=== PATIENT | female | born 1950 | race Caucasian/White ===

== ENCOUNTER 2016-09-19 12:07 | Emergency (ER) | payer OTHER ==
[~2016-09-19] VITALS: Ht 170.2 cm; Wt 101.6 kg
[2016-09-19 13:41] LABS: ABSOLUTE NEUTROPHILS 10.9 thou/uL (1.4-8.2); BASOPHILS 0.7 % (0.0-2.0); EOSINOPHILS 0.2 % (0.0-3.0); HEMATOCRIT 25.5 % (37.0-47.0); HEMOGLOBIN 8.5 gm/dL (12.0-15.0); LYMPHOCYTES 6.4 % (24.0-44.0); MCH 27.8 pg (26.0-34.0); MCHC 33.1 g/dL (28.0-37.0); MONOCYTES 6.5 % (1.0-8.0); PLATELET COUNT 264 thou/uL (150-400); POLYS 86.2 % (36.0-66.0); RBC 3.04 mil/uL (4.20-5.00); RDW 16.9 % (10.5-14.5); WBC 12.7 thou/uL (4.0-11.0)
[2016-09-19 13:46] LABS: CALCIUM 8.6 mg/dL (8.5-10.1); CREATININE 1.5 mg/dL (0.6-1.0); POTASSIUM 4.9 mmol/L (3.5-5.1)
[2016-09-19 13:47] LABS: MANUAL DIFF NO
[2016-09-19 13:58] LABS: ALBUMIN 2.3 g/dL (3.4-5.0); DIRECT BILIRUBIN 0.1 mg/dL (<0.1-0.3); TOTAL BILIRUBIN 0.5 mg/dL (<0.1-1.0); TOTAL PROTEIN 7.2 g/dL (6.4-8.2)
[2016-09-19] MEDS ORDERED: SIMVASTATIN40 MG PO (13:59)
[2016-09-19] MEDS ORDERED: FLUOXETINE HCL40 MG PO (13:59)
[2016-09-19] MEDS ORDERED: AMARYL4 MG PO (13:59)
[2016-09-19] MEDS ORDERED: FOLIC ACID1 MG PO (13:59)
[2016-09-19] MEDS ORDERED: METFORMIN HCL500 MG PO ×2 (14:00→14:08)
[2016-09-19] MEDS ORDERED: CEFAZOLIN2 GM/100 M IV (14:00)
[2016-09-19] MEDS ORDERED: HEPARIN SO5000 UNIT2 IJ (14:01)
[2016-09-19] MEDS ORDERED: LANTUS SUBQ (14:03)
[2016-09-19] MEDS ORDERED: LOPRESSOR100 M1 PO (14:03)
[2016-09-19] MEDS ORDERED: LISINOPRIL20 MG PO (14:03)
[2016-09-19] MEDS ORDERED: CLONIDINE0.1 PO (14:04)
[2016-09-19] MEDS ORDERED: NORVASC10 MG PO (14:04)
[2016-09-19] MEDS ORDERED: NORCO 5-325 TA1 EACH PO (14:05)
[2016-09-19] MEDS ORDERED: LASIX 40 MG TAB40 M2 PO (14:07)
[2016-09-19] MEDS ORDERED: LEVAQUIN 750 M750 MG PO (15:16)
[2016-09-19 16:30] VITALS: BP 136/68
== END 2016-09-19 15:23 | disposition home or self-care (01) ==
LOC: ER 12:07
PROVIDERS: Emergency Medicine
DX: J90 Pleural effusion, not elsewhere classified (principal); K59.00 Constipation, unspecified; E11.40 Type 2 diabetes mellitus with diabetic neuropathy, unspecified; I10 Essential (primary) hypertension; E78.5 Hyperlipidemia, unspecified; F10.99 Alcohol use, unspecified with unspecified alcohol-induced disorder; Z79.4 Long term (current) use of insulin